=== PATIENT | female | born 1935 | race Two or more races ===

== ENCOUNTER 2019-08-04 03:53 | Emergency (ER) | payer MEDICARE, OTHER ==
[~2019-08-04] VITALS: Ht 152.4 cm; Wt 49.9 kg
[2019-08-04] MEDS ORDERED: SUCCINYLCHOLINE CHLORIDE 20 MG/ML VIAL IV ONE (03:55)
[2019-08-04] MEDS ORDERED: FEE EMEERGENCY 1 MIN EA MC ONE (03:55)
[2019-08-04] MEDS ORDERED: VECURONIUM 10 MG VIAL IV ONE (03:55)
[2019-08-04] MEDS ORDERED: EPINEPHRINE (1:10,000) SYRINGE 1 MG/10 ML DISP.SYRIN IVP ONE (03:55)
--- NOTE | 2019-08-04 03:55 | NUR ---
PT [id number]. PER RA FOUND UNDER HER BED WITH TELEPHONE CORD AROUND HER NECK. PT WAS PULLED OUT FROM UNDER THE BED, CPR STARTED, THEN TRANSPORTED TO [facility] ED. PER RA, PT SHOCKED THREE TIMES [employer] AND GIVEN 3 EPIS. UPON ARRIVAL TO ED, CPR CONTINUED, PLACED IN BED 8. REPORT TO [employer].
--- NOTE | 2019-08-04 04:05 | NUR ---
TIME OF CALLED BY JAYNA LOVELL.
--- NOTE | 2019-08-04 04:37 | NUR ---
[facility] SPOKE WITH MARCELO.
--- NOTE | 2019-08-04 04:45 | NUR ---
REPORTED TO [facility]. SPOKE WITH CARO. REFERAL NUMBER [id number].
--- NOTE | 2019-08-04 05:00 | NUR ---
Dorothy henriquez in [facility] - 08/04/19 at 0508 by FORREST BENITA FROM [facility] CALLED
--- NOTE | 2019-08-04 05:00 | NUR ---
MARNI FROM [facility] CALLED. INFO GIVEN. PER MARNI PT IS POTENTIAL. WILL CALL BACK IN ONE HOUR TO CHECK IF [place] [employer]ONERS WILL EXTENSION AGENT PATIENT. GIVEN
--- NOTE | 2019-08-04 06:17 | NUR ---
B[place]SP[place] [facility] [place].
== END 2019-08-04 06:23 | disposition expired ==
LOC: ER 03:54
DX: I46.9 Cardiac arrest, cause unspecified (principal)
CPT/HCPCS: 92950; 99285; J0171; J0330; J3490